=== PATIENT | male | born 1980 | race Caucasian/White ===

== ENCOUNTER → 2017-05-11 | Outpatient (CLI) | payer OTHER | LOC: COL.PUL 12:40 | DX: R06.02 Shortness of breath (principal); F17.210 Nicotine dependence, cigarettes, uncomplicated ==

== ENCOUNTER 2017-06-04 06:58 | Day surgery (SDC) | payer OTHER ==
[~2017-06-04] VITALS: Ht 180.3 cm; Wt 94.3 kg
[2017-06-04] VITALS (9 sets, daily range): BP systolic 116–148; BP diastolic 82–99; PULSE 67–83; TEMP 97.7–98.2
[2017-06-04 07:52] LABS: INR 1.1 (0.8-3.0); PROTHROMBIN TIME 12.2 SECONDS (9.7-12.8)
[2017-06-04 07:53] LABS: HEMATOCRIT 39.4 % (42.0-52.0); HEMOGLOBIN 13.5 g/dl (13.5-18.0); MEAN CELL VOLUME 94 fl (80.0-100.0); MEAN CORPUSCULAR HEMOGLOBIN 32 pg (27.0-31.0); MEAN CORPUSCULAR HGB CONC 34 g/dl (33.0-37.0); MEAN PLATELET VOLUME 12.1 fl (7.4-10.4); RED BLOOD COUNT 4.18 M/mm3 (4.20-5.60); REDCELL DISTRIBUTION WIDTH-CV 12.9 % (11.5-14.5)
[2017-06-04 07:54] LABS: PLATELET COUNT 133 K/mm3 (130-400)
[2017-06-04 07:57] LABS: CALCIUM 9.2 mg/dL (8.4-10.2); CREATININE, serum 1.51 mg/dL (0.66-1.25); POTASSIUM 3.7 mmol/L (3.4-5.0)
[2017-06-04] MEDS ORDERED: ZESTRIL30 MG PO (08:17)
[2017-06-04] MEDS ORDERED: TOPROL XL 50MG50 MG PO (08:18)
[2017-06-04] MEDS ORDERED: ZOLOFT 100MG100 MG PO (08:19)
[2017-06-04] MEDS ORDERED: TOPAMAX200 MG PO (08:19)
[2017-06-04] MEDS ORDERED: RESTORIL 1515 MG/CAP PO (08:20)
[2017-06-04] MEDS ORDERED: PROAIR HFA0.09 MG/AC IH (08:21)
[2017-06-04] MEDS ORDERED: NORVASC 5MG5 MG/TAB PO (09:53)
== END 2017-06-04 13:07 | disposition home or self-care (01) ==
LOC: COL.CAR 06:58
PROVIDERS: Internal Medicine Cardiovascular Disease
DX: I20.0 Unstable angina (principal); R94.39 Abnormal result of other cardiovascular function study; I10 Essential (primary) hypertension; G47.33 Obstructive sleep apnea (adult) (pediatric); F17.210 Nicotine dependence, cigarettes, uncomplicated; Z82.49 Family history of ischemic heart disease and other diseases of the circulatory system
CPT/HCPCS: C1769; J1644; J2250; J3010; Q9967

== ENCOUNTER 2018-04-07 09:58 | Day surgery (SDC) | payer OTHER ==
[~2018-04-07 09:58] MED LIST: NORVASC 5MG5 MG/TAB PO; PROAIR HFA0.09 MG/AC IH; RESTORIL 1515 MG/CAP PO; TOPAMAX200 MG PO; TOPROL XL 50MG50 MG PO; ZESTRIL30 MG PO; ZOLOFT 100MG100 MG PO
[2018-04-07] MEDS ORDERED: PRILOSEC 20MG20 MG PO (10:24)
[2018-04-07] MEDS ORDERED: LOPRESSOR 225 MG/TAB PO (10:25)
[2018-04-07] MEDS ORDERED: DESYREL 50MG50 MG PO (10:26)
[2018-04-07] MEDS ORDERED: LUNESTA3 MG PO (10:26)
== END 2018-04-07 10:45 | disposition home or self-care (01) ==
LOC: SDCO 09:58
DX: N20.2 Calculus of kidney with calculus of ureter (principal); J44.9 Chronic obstructive pulmonary disease, unspecified; R30.0 Dysuria; I10 Essential (primary) hypertension; F17.210 Nicotine dependence, cigarettes, uncomplicated; J45.909 Unspecified asthma, uncomplicated; G47.33 Obstructive sleep apnea (adult) (pediatric); K21.9 Gastro-esophageal reflux disease without esophagitis; G43.909 Migraine, unspecified, not intractable, without status migrainosus; Z88.0 Allergy status to penicillin; Z53.8 Procedure and treatment not carried out for other reasons
CPT/HCPCS: J2704; J3010